=== PATIENT | male | born 1970 | race Caucasian/White ===

== ENCOUNTER 2023-06-26 22:03 | Emergency (ER) | payer MEDICAID, SELFPAY ==
[2023-06-26 22:09] VITALS: BP 130/103; BP 160/99; PULSE 103; PULSE 99; RESP 16; RESP 18; TEMP 36.8; O2SAT 95; O2SAT 99; BMI 26.2
[2023-06-26 22:11] VITALS: BP 131/94; PULSE 109; RESP 16; O2SAT 95
[2023-06-26 22:28] VITALS: BP 113/102; PULSE 101; RESP 16; O2SAT 95
[2023-06-26 22:31] VITALS: BP 127/87; PULSE 99; RESP 16; O2SAT 94
--- NOTE | 2023-06-26 22:39 | CRLHL7_ITS ---
For Patients: As a result of the Century Cures Act, medical imaging exams and procedure reports are released immediately into your electronic medical record. You may view this report before your referring provider. If you have questions, please contact your health care provider. INDICATION: Chest pain, diaphoresis. TECHNIQUE: Chest 2 views. COMPARISON: None. FINDINGS: Cardiovascular and mediastinum: Heart size and vasculature are normal in caliber and appearance. Lungs and pleural spaces: Lungs are clear. No sign of infiltrate or mass. No sign of pleural effusion. No pneumothorax. Bones and soft tissues: No significant findings. IMPRESSION: No acute cardiopulmonary abnormality. Dictated by Lico Lima MD @ 06/26/2023 11:09:47 PM (Electronically Signed)
--- NOTE | 2023-06-26 22:44 | ED_ITS ---
HPI - General Adult General Chief complaint: Chest Pain <Gwen Mota MD - Last Filed: 06/27/23 02:13> Stated complaint: Chest Pain <Gwen Mota MD - Last Filed: 06/27/23 02:13> Time Seen by Provider: 06/26/23 22:22 <Gwen Mota MD - Last Filed: 06/27/23 02:13> Source: patient, family and EMS <Gwen Mota MD - Last Filed: 06/27/23 02:13> Mode of arrival: EMS <Gwen Mota MD - Last Filed: 06/27/23 02:13> History of Present Illness HPI narrative: 53-year-old male with no prior cardiac history presents the emergency department by EMS. Reports that approximately 4 hours prior to arrival, he had an episode of lightheadedness with shortness of breath and racing heart that lasted about an hour while he was walking, playing golf with friends. He did have 3-4 alcoholic beverages today over the course of the afternoon. He assumed that he must just be a little dehydrated and it was a bit humid today. When he got home he drink 2 bottles of water but still felt an overall sense of heaviness in the chest and winded and he noticed that he had been sweating. He felt like his heart was racing. He does wear an Apple watch. He allows me to interrogate this. It does not have the AFib monitor [place] but it does have spot checks of heart rate. It looks as though his heart rate was recorded between 90 and 138 during his reported symptoms. He says that he is feeling better now. No prior history of similar episodes. He does have a history of hyperlipidemia, no prior stress testing. Does have a family history of coronary artery disease in his father and paternal grandmother both in their early 60s. Dad however was a very heavy smoker. Has no history of DVT or PE. He does have a history of rheumatoid arthritis but is managed on Humira. No known hypercoagulability. No fevers, no productive cough, no current GI symptoms though he is prone to heartburn. He states that he does tend to drink 3-4 alcoholic beverages per sitting, typically 3-4 days per week. Nonsmoker. Did not try any other interventions other than increased fluid to help with his symptoms. Did receive 325 of aspirin by EMS. Past medical history notable for rheumatoid arthritis and hyperlipidemia. Home meds are Humira and atorvastatin. Nonsmoker. Family history as above. ROS notable for the generalized, cardiac and respiratory symptoms as above, otherwise denies times 12 systems. <Gwen Mota MD - Last Filed: 06/27/23 02:13> Related Data Home medications: Home Medications Medication Instructions Recorded Confirmed adalimumab 40 mg/0.8 mL 40 mg subcut Q14D 06/26/23 06/26/23 subcutaneous syringe kit (Humira) atorvastatin 40 mg tablet (Lipitor) 40 mg PO DAILY 06/26/23 06/26/23 <Gwen Mota MD - Last Filed: 06/27/23 02:13> Allergies/adverse reactions: Allergies Allergy/AdvReac Type Severity Reaction Status Date / Time No Known Drug Allergies Allergy Verified 06/26/23 22:12 <Gwen Mota MD - Last Filed: 06/27/23 02:13> [facility] Medical History: Medical History (Updated 06/27/23 @ 02:13 by Gwen Mota MD) Rheumatoid arthritis ?M06.9 - Rheumatoid arthritis, unspecified (ICD-10) High cholesterol ?E78.00 - Pure hypercholesterolemia, unspecified (ICD-10) <Gwen Mota MD - Last Filed: 06/27/23 02:13> Surgical History: Surgical History (Updated 06/26/23 @ 22:52 by Sudarshan Pearson RN) No significant past surgical history <Gwen Mota MD - Last Filed: 06/27/23 02:13> Social History: Social History Smoking Status: Never smoker Second hand tobacco smoke exposure: No How often do you have a drink containing alcohol: never How often do you have six or more drinks on one occasion: Never AUDIT-C Alcohol total score: 0 Non-prescribed substance use: denies use <Gwen Mota MD - Last Filed: 06/27/23 02:13> Exam Const: Vital Signs, click to edit/add: Vital Signs - 24 hr 06/26/23 22:09 06/26/23 22:09 06/26/23 22:11 Temperature 98.2 F Pulse Rate 103 H 109 H Pulse Rate [Right Pulse Oximeter] 99 Respiratory Rate 18 16 16 Blood Pressure 130/103 H 131/94 H Blood Pressure [Le ft Upper Arm] 160/99 H Pulse Oximetry 99 95 95 Oxygen Delivery Me thod Room Air 06/26/23 22:28 06/26/23 22:31 06/26/23 22:50 Temperature Pulse Rate 101 H 99 Pulse Rate [Right Pulse Oximeter] Respiratory Rate 16 16 Blood Pressure 113/102 H 127/87 Blood Pressure [Le ft Upper Arm] Pulse Oximetry 95 94 98 Oxygen Delivery Me thod 06/27/23 03:13 Temperature 98.0 F Pulse Rate Pulse Rate [Right Pulse Oximeter] 89 Respiratory Rate 16 Blood Pressure Blood Pressure [Le ft Upper Arm] 125/77 Pulse Oximetry 98 Oxygen Delivery Me thod Room Air <Gwen Mota MD - Last Filed: 06/27/23 02:13> Vital Signs, click to edit/add: Vital Signs - 24 hr 06/26/23 22:09 06/26/23 22:09 06/26/23 22:11 Temperature 98.2 F Pulse Rate 103 H 109 H Pulse Rate [Right Pulse Oximeter] 99 Respiratory Rate 18 16 16 Blood Pressure 130/103 H 131/94 H Blood Pressure [Le ft Upper Arm] 160/99 H Pulse Oximetry 99 95 95 Oxygen Delivery Me thod Room Air 06/26/23 22:28 06/26/23 22:31 06/26/23 22:50 Temperature Pulse Rate 101 H 99 Pulse Rate [Right Pulse Oximeter] Respiratory Rate 16 16 Blood Pressure 113/102 H 127/87 Blood Pressure [Le ft Upper Arm] Pulse Oximetry 95 94 98 Oxygen Delivery Me thod 06/27/23 03:13 Temperature 98.0 F Pulse Rate Pulse Rate [Right Pulse Oximeter] 89 Respiratory Rate 16 Blood Pressure Blood Pressure [Le ft Upper Arm] 125/77 Pulse Oximetry 98 Oxygen Delivery Me thod Room Air <Nevin Louie MD - Last Filed: 06/27/23 03:24> Documenting provider has reviewed patient's vital signs: yes <Gwen Mota MD - Last Filed: 06/27/23 02:13> Common normals: no apparent distress and alert <MD Dorothy Duffy Last Filed: 06/27/23 02:13> General appearance: well kempt <MD Dorothy Duffy Last Filed: 06/27/23 02:13> HENMT: Common normals: normocephalic and head/scalp atraumatic <MD Dorothy Duffy Last Filed: 06/27/23 02:13> Head and scalp: normocephalic and atraumatic <MD Dorothy Duffy Last Filed: 06/27/23 02:13> Mouth: oral and palatal mucosa normal <MD Dorothy Duffy Last Filed: 06/27/23 02:13> Throat: posterior oropharynx normal <MD Dorothy Duffy Last Filed: 06/27/23 02:13> Eye: Common normals: conjunctivae normal <MD Dorothy Duffy Last Filed: 06/27/23 02:13> General eye: normal appearance of both eyes <MD Dorothy Duffy Last Filed: 06/27/23 02:13> Conjunctiva: conjunctiva(e) normal <MD Dorothy Duffy Last Filed: 02:13> Neck & C-Spine: Common normals: no lymphadenopathy <MD Dorothy Duffy Last Filed: 06/27/23 02:13> General: normal visual inspection <MD Dorothy Duffy Last Filed: 06/27/23 02:13> Resp: Common normals: normal respiratory effort, no use of accessory muscles and clear to auscultation bilaterally <MD Dorothy Duffy Last Filed: 06/27/23 02:13> Effort & inspection: able to speak in complete sentences <MD Dorothy Duffy Last Filed: 06/27/23 02:13> Auscultation: clear to auscultation bilaterally <MD Dorothy Duffy Last Filed: 06/27/23 02:13> Cardio: Common normals: regular rate, regular rhythm, S1 normal heart sound, S2 normal heart sound, no murmurs and peripheral pulses 2+ throughout <MD Dorothy Duffy Last Filed: 06/27/23 02:13> Rate: regular rate <MD Dorothy Duffy Last Filed: 06/27/23 02:13> Rhythm: regular rhythm <MD Dorothy Duffy Last Filed: 06/27/23 02:13> Heart sounds: S1 normal and S2 normal <MD Dorothy Duffy Last Filed: 06/27/23 02:13> Peripheral pulses: pulses 2+ throughout <MD Dorothy Duffy Last Filed: 06/27/23 02:13> GI: Common normals: Normal to inspection, nondistended, normoactive bowel sounds present, soft to palpation, non-tender, no hepatosplenomegaly and no masses <MD Dorothy Duffy Last Filed: 06/27/23 02:13> Palpation: soft and no hepatosplenomegaly <MD Dorothy Duffy Last Filed: 06/27/23 02:13> Extremity: Common normals: normal to inspection, normal capillary refill and no pedal edema <MD Dorothy Duffy Last Filed: 06/27/23 02:13> Neuro: Sensorium/orientation: alert <MD Dorothy Duffy Last Filed: 06/27/23 02:13> Speech: speech normal <MD Dorothy Duffy Last Filed: 06/27/23 02:13> Motor exam: strength 5/5 throughout and no tremor noted <MD Dorothy Duffy Last Filed: 06/27/23 02:13> Psych: Appearance: well kempt <MD Dorothy Duffy Last Filed: 06/27/23 02:13> Activity/motor behavior: appropriate eye contact <MD Dorothy Duffy Last Filed: 06/27/23 02:13> Mood and affect: euthymic mood <MD Dorothy Duffy Last Filed: 06/27/23 02:13> Memory/cognition: memory grossly intact <Gwen Mota MD - Last Filed: 06/27/23 02:13> Insight: insight good <Gwen Mota MD - Last Filed: 06/27/23 02:13> Judgement: judgment good <Gwen Mota MD - Last Filed: 06/27/23 02:13> Skin: Common normals: no rashes or lesions noted <Gwen Mota MD - Last Filed: 06/27/23 02:13> General skin exam: no rashes or lesions noted <Gwen Mota MD - Last Filed: 06/27/23 02:13> Course Course ED Course: Spell of chest pressure with diaphoresis and shortness of breath suspicious for cardiac arrhythmia, most likely AFib. Heart rate has now improved though EMS does report that it was elevated upon their arrival that did not catch any abnormal rhythms specifically. I recommend basic labs, troponin, BNP, chest x-ray, EKG, CBC. night monitor. At this time, he is back in normal sinus rhythm. Differential diagnosis also includes acute coronary syndrome, pulmonary embolism, congestive heart failure, cardiomyopathy, sepsis, anemia, electrolyte abnormality. <Gwen Mota MD - Last Filed: 06/27/23 02:13> Reevaluation(s) Time of Reevaluation #1: 23:52 <Gwen Mota MD - Last Filed: 06/27/23 02:13> Reevaluation #1: Patient continues to be in sinus rhythm, remains asymptomatic. Initial lab findings discussed, elevated troponin. D-dimer is also mildly elevated, because he does have a history of autoimmune disease, I do recommend that we do a CT PA while we wait for repeat troponin. Obviously if troponins are trending up, I am more concerned for acute coronary syndrome, if they are trending down, this would support the arrhythmia very. Will likely need cardiology input once the CT results are available. <Gwen Mota MD - Last Filed: 06/27/23 02:13> Time of Reevaluation #2: 01:14 <Gwen Mota MD - Last Filed: 06/27/23 02:13> Reevaluation #2: Patient remains asymptomatic. Updated on negative CT PA, troponins continue to elevate above initial level. I have started calling around for transfer. Awaiting call back from Cardiology and has been tentatively accepted for an [facility] cardiac tele bed. Patient does typically receive primary care through [facility]. I have been declined transfer from [facility]. <Gwen Mota MD - Last Filed: 06/27/23 02:13> Time of Reevaluation #3: 01:25 <Gwen Mota MD - Last Filed: 06/27/23 02:13> Reevaluation #3: Transfer accepted from [facility] by Dr. Barron, cardiology. Awaiting call back from hospitalist. Transfer center has assured me that they are holding a cardiology telemetry bed and there is no weight. Dr. Barron and I discussed patient care. He has already been given aspirin. He does recommend that we go ahead and start a heparin drip and this will be done. Transfer forms completed. Patient is in agreement. It sounds like we only have 1 ambulance on tonight, I would consider this an urgent transfer as his troponins are escalati ng. If patient is unable to transfer, would recommend repeat troponin with 4 hour typical heparin labs. <Gwen Mota MD - Last Filed: 06/27/23 02:13> Additional Reevaluation(s): Update: 1:51 a.m., [facility] hospitalist accepting, Dr. Draper. Awaiting timing of transfer plan due to EMS availability. <Gwen Mota MD - Last Filed: 06/27/23 02:13> Vital Signs Vital signs: Initial Vital Signs Temperature 98.2 F 06/26/23 22:09 Temperature Source Temporal Artery Scan 06/26/23 22:09 Pulse Rate 103 H 06/26/23 22:09 Pulse Rhythm Regular 06/26/23 22:09 Pulse Strength 3+ Normal 06/26/23 22:09 Respiratory Rate 18 06/26/23 22:09 Blood Pressure 130/103 H 06/26/23 22:09 Blood Pressure Mean 112 H 06/26/23 22:09 Blood Pressure Position Sitting 06/26/23 22:09 Pulse Oximetry 99 06/26/23 22:09 Oxygen Delivery Method Room Air 06/26/23 22:09 Vital Signs Temperature 98.2 F 06/26/23 22:09 Pulse Rate 103 H 06/26/23 22:09 Respiratory Rate 18 06/26/23 22:09 Blood Pressure 130/103 H 06/26/23 22:09 Pulse Oximetry 99 06/26/23 22:09 Oxygen Delivery Method Room Air 06/26/23 22:09 Temperature 98.0 F 06/27/23 03:13 Pulse Rate 89 06/27/23 03:13 Respiratory Rate 16 06/27/23 03:13 Blood Pressure 125/77 06/27/23 03:13 Pulse Oximetry 98 06/27/23 03:13 Oxygen Delivery Method Room Air 06/27/23 03:13 <Gwen Mota MD - Last Filed: 06/27/23 02:13> Initial Vital Signs Temperature 98.2 F 06/26/23 22:09 Temperature Source Temporal Artery Scan 06/26/23 22:09 Pulse Rate 103 H 06/26/23 22:09 Pulse Rhythm Regular 06/26/23 22:09 Pulse Strength 3+ Normal 06/26/23 22:09 Respiratory Rate 18 06/26/23 22:09 Blood Pressure 130/103 H 06/26/23 22:09 Blood Pressure Mean 112 H 06/26/23 22:09 Blood Pressure Position Sitting 06/26/23 22:09 Pulse Oximetry 99 06/26/23 22:09 Oxygen Delivery Method Room Air 06/26/23 22:09 Vital Signs Temperature 98.2 F 06/26/23 22:09 Pulse Rate 103 H 06/26/23 22:09 Respiratory Rate 18 06/26/23 22:09 Blood Pressure 130/103 H 06/26/23 22:09 Pulse Oximetry 99 06/26/23 22:09 Oxygen Delivery Method Room Air 06/26/23 22:09 Temperature 98.0 F 06/27/23 03:13 Pulse Rate 89 06/27/23 03:13 Respiratory Rate 16 06/27/23 03:13 Blood Pressure 125/77 06/27/23 03:13 Pulse Oximetry 98 06/27/23 03:13 Oxygen Delivery Method Room Air 06/27/23 03:13 <Nevin Louie MD - Last Filed: 06/27/23 03:24> Medical Decision Making MDM Narrative Medical decision making narrative: Patient was transferred to my care by Dr. Mota. Patient noted to have a non STEMI. Unfortunately troponins are trending upward and although patient does not describe chest pain he does not feel well an IM noting that this is his anginal equivalent. Blood pressure pulse stable at this time. Given patient's troponins which are trending upward I am requesting transfer on an expedited basis from EMS. <Nevin Louie MD - Last Filed: 06/27/23 03:24> Lab Data Lab results reviewed: Yes I reviewed the patient's lab results <Gwen Mota MD - Last Filed: 06/27/23 02:13> Lab results narrative: Elevated troponin, mildly elevated D-dimer. Update: 2nd troponin continues to escalate. Transfer planned <Gwen Mota MD - Last Filed: 06/27/23 02:13> Labs: Lab Results 06/26/23 06/26/23 06/27/23 Range/Units 22:46 22:50 00:24 WBC 13.47 H (4.50-11.00) K/uL RBC 4.48 (4.30-5.90) m/uL Hgb 14.1 (13.5-17.5) gm/dL Hct 41.0 (37.0-53.0) % MCV 92 (80-100) fL MCH 32 (26-34) pg MCHC 34 (32-36) gm/dL RDW Coeff of Katia 11.9 (11.5-15.5) % Plt Count 304 (140-440) K/uL Neut % (Auto) 70.3 (42.0-72.0) % Lymph % (Auto) 17.9 L (20-44) % [place] % (Auto) 8.5 (0.0-11.0) % Eos % (Auto) 1.6 (0.0-7.0) % Baso % (Auto) 0.7 (0.0-3.0) % Neut # (Auto) 9.50 H (1.7-7.0) K/uL Lymph # (Auto) 2.40 (0.90-2.90) K/uL [place] # (Auto) 1.10 H (0.00-0.90) K/UL Eos # (Auto) 0.20 (0.00-0.50) K/uL Baso # (Auto) 0.10 (0.00-0.30) K/uL Abs Immat Gran (auto) 0.10 (0.00-0.30) K/uL Imm/Tot Granulo (auto) 1.0 % INR 1.03 (0.91-1.10) APTT 34 H (23-33) Seconds D-Dimer Quant (PE/DVT) 0.62 H (0.00-0.50) ug/ml Sodium 139 (135-149) mmol/L Potassium 3.7 (3.6-5.1) mmol/L Chloride 108 (96-114) mmol/L Carbon Dioxide 20 (20-32) mmol/L Anion Gap 11 (7-15) mEq/L BUN 16 (7-30) mg/dL Creatinine 0.9 (0.5-1.5) mg/dL Estimated Creat Clear 110.84 Estimated GFR 101 ml/min Glucose 126 H (60-115) mg/dL Calcium 9.2 (8.4-10.6) mg/dL Troponin I 0.09 H* (0.01-0.04) ng/mL C-Reactive Protein < 0.5 L (0.5-1.0) mg/dL NT-Pro-B Natriuret Pep 115 pg/mL POC Troponin I 0.09 H 0.19 H (0.01-0.04) ng/ml <Gwen Mota MD - Last Filed: 06/27/23 02:13> Lab Results 06/26/23 06/26/23 06/27/23 Range/Units 22:46 22:50 00:24 WBC 13.47 H (4.50-11.00) K/uL RBC 4.48 (4.30-5.90) m/uL Hgb 14.1 (13.5-17.5) gm/dL Hct 41.0 (37.0-53.0) % MCV 92 (80-100) fL MCH 32 (26-34) pg MCHC 34 (32-36) gm/dL RDW Coeff of [place] 11.9 (11.5-15.5) % Plt Count 304 (140-440) K/uL Neut % (Auto) 70.3 (42.0-72.0) % Lymph % (Auto) 17.9 L (20-44) % [place] % (Auto) 8.5 (0.0-11.0) % Eos % (Auto) 1.6 (0.0-7.0) % Baso % (Auto) 0.7 (0.0-3.0) % Neut # (Auto) 9.50 H (1.7-7.0) K/uL Lymph # (Auto) 2.40 (0.90-2.90) K/uL [place] # (Auto) 1.10 H (0.00-0.90) K/UL Eos # (Auto) 0.20 (0.00-0.50) K/uL Baso # (Auto) 0.10 (0.00-0.30) K/uL Abs Immat Gran (auto) 0.10 (0.00-0.30) K/uL Imm/Tot Granulo (auto) 1.0 % INR 1.03 (0.91-1.10) APTT 34 H (23-33) Seconds D-Dimer Quant (PE/DVT) 0.62 H (0.00-0.50) ug/ml Sodium 139 (135-149) mmol/L Potassium 3.7 (3.6-5.1) mmol/L Chloride 108 (96-114) mmol/L Carbon Dioxide 20 (20-32) mmol/L Anion Gap 11 (7-15) mEq/L BUN 16 (7-30) mg/dL Creatinine 0.9 (0.5-1.5) mg/dL Estimated Creat Clear 110.84 Estimated GFR 101 ml/min Glucose 126 H (60-115) mg/dL Calcium 9.2 (8.4-10.6) mg/dL Troponin I 0.09 H* (0.01-0.04) ng/mL C-Reactive Protein < 0.5 L (0.5-1.0) mg/dL NT-Pro-B Natriuret Pep 115 pg/mL POC Troponin I 0.09 H 0.19 H (0.01-0.04) ng/ml <Nevin Louie MD - Last Filed: 06/27/23 03:24> Imaging Data Chest x-ray: Attestation: I have reviewed the pertinent imaging results. <Gwen Mota MD - Last Filed: 06/27/23 02:13> My impression: Normal x-ray. No effusions, consolidations or cardiomegaly. <Gwen Mota MD - Last Filed: 06/27/23 02:13> Radiologist's impression: IMPRESSION: No acute cardiopulmonary abnormality. <Gwen Mota MD - Last Filed: 06/27/23 02:13> CT scan - chest: Attestation: I have reviewed the pertinent imaging results. <Gwen Mota MD - Last Filed: 06/27/23 02:13> My impression: No obvious large vessel clot <Gwen Mota MD - Last Filed: 06/27/23 02:13> Radiologist's impression: IMPRESSION: No pulmonary embolism to the level of the distal segmental pulmonary arteries. Limited evaluation of the subsegmental branches. No focal consolidations. Few mildly enlarged mediastinal and bilateral hilar lymph nodes, possibly reactive. <Gwen Mota MD - Last Filed: 06/27/23 02:13> ECG Data Attestation: I personally reviewed and interpreted this ECG as follows: <Gwen Mota MD - Last Filed: 06/27/23 02:13> Prior ECG tracings: not available for review <Gwen Mota MD - Last Filed: 06/27/23 02:13> Interpretation: Normal sinus rhythm, rate 99. Mild left axis deviation with otherwise no significant ST or T-wave abnormalities, no obvious acute ischemia. <Gwen Mota MD - Last Filed: 06/27/23 02:13> Discharge Plan Discharge Clinical Impression: Non-ST elevated myocardial infarction (non-STEMI) <Gwen Mota MD - Last Filed: 06/27/23 02:13> Patient Disposition: [facility] <Gwen Mota MD - Last Filed: 06/27/23 02:13> Discharge Location: [facility] <Gwen Mota MD - Last Filed: 06/27/23 02:13> Prescriptions: No Action atorvastatin [Lipitor] 40 mg tablet 40 mg PO DAILY Humira 40 mg/0.8 mL syringe kit 40 mg subcut Q14D <Gwen Mota MD - Last Filed: 06/27/23 02:13> Stand Alone Forms: [facility] Info Instructions <Gwen Mota MD - Last Filed: 06/27/23 02:13>
[2023-06-26 22:50] VITALS: O2SAT 98
[2023-06-26 22:54] LABS: Basophils Percent Auto 0.7 % (0.0-3.0); Eosinophils Percent Auto 1.6 % (0.0-7.0); Hemoglobin* 14.1 gm/dL (13.5-17.5); Lymphocytes Percent Auto 17.9 % (20-44); Mean Corpuscular HGB Conc 34 gm/dL (32-36); Mean Corpuscular Hemoglobin 32 pg (26-34); Mean Corpuscular Volume 92 fL (80-100); Monocytes Percent Auto 8.5 % (0.0-11.0); Neutrophils Percent Auto 70.3 % (42.0-72.0); Platelet Count* 304 K/uL (140-440); RDW Coefficient of Variation % 11.9 % (11.5-15.5); Red Blood Count 4.48 m/uL (4.30-5.90); White Blood Count* 13.47 K/uL (4.50-11.00)
[2023-06-26 23:01] LABS: Slide Review Reflex No
[2023-06-26 23:02] LABS: Troponin, Point-of-Care* 0.09 ng/ml (0.01-0.04)
[2023-06-26 23:16] LABS: Chloride* 108 mmol/L (96-114); Sodium* 139 mmol/L (135-149)
[2023-06-26 23:17] LABS: Potassium* 3.7 mmol/L (3.6-5.1)
[2023-06-26 23:19] LABS: Creatinine* 0.9 mg/dL (0.5-1.5); Est. Creatinine Clearance* 110.84; Estimated Glomerular Filt Rate 101 ml/min
[2023-06-26 23:20] LABS: Anion Gap 11 mEq/L (7-15); Blood Urea Nitrogen* 16 mg/dL (7-30); Calcium* 9.2 mg/dL (8.4-10.6); Carbon Dioxide* 20 mmol/L (20-32); Glucose* 126 mg/dL (60-115)
[2023-06-26 23:30] LABS: C Reactive Protein* < 0.5 mg/dL (0.5-1.0); NT Pro B Type NatriureticPept* 115 pg/mL
[2023-06-26 23:31] LABS: D Dimer Quantitative* 0.62 ug/ml (0.00-0.50)
[2023-06-26 23:34] LABS: Troponin I* 0.09 ng/mL (0.01-0.04)
--- NOTE | 2023-06-26 23:40 | CRLHL7_ITS ---
For Patients: As a result of the Century Cures Act, medical imaging exams and procedure reports are released immediately into your electronic medical record. You may view this report before your referring provider. If you have questions, please contact your health care provider. INDICATION: Dyspnea, tachycardia. TECHNIQUE: CT chest PE was acquired with 100 cc Omnipaque 350 IV contrast. COMPARISON: None. FINDINGS: Heart and vasculature: Contrast opacification of the pulmonary arterial tree is adequate. No sign of pulmonary embolism. Heart size is normal. Thoracic aorta and pulmonary artery are normal in caliber. Lungs and pleura: Scattered atelectasis. No pleural effusions, pleural thickening, or pneumothorax. Lymph nodes/mediastinum: Few mildly enlarged mediastinal and bilateral hilar lymph nodes, possibly reactive. Chest wall: No masses. Upper abdomen: No acute or significant findings. Bones: Unremarkable for age. IMPRESSION: No pulmonary embolism to the level of the distal segmental pulmonary arteries. Limited evaluation of the subsegmental branches. No focal consolidations. Few mildly enlarged mediastinal and bilateral hilar lymph nodes, possibly reactive. Please note that all CT scans at this facility use dose modulation, iterative reconstruction, and/or weight-based dosing when appropriate to reduce radiation dose to as low as reasonably achievable. Dictated by Deyvi Mejia MD @ 06/27/2023 12:31:18 AM (Electronically Signed)
[2023-06-27] MEDS: HEPARIN 5,000 UNIT/0.5 ML INJ 4000 UNIT IVP (01:41)
[2023-06-27 01:42] LABS: INR 1.03 (0.91-1.10); Prothrombin Time 14.1 Seconds
[2023-06-27] MEDS: HEPARIN 25,000 UNIT/500 ML BAG 23 UNIT IV (01:42)
[2023-06-27 01:46] LABS: Partial Thromboplastin Time* 34 Seconds (23-33)
[2023-06-27 03:13] VITALS: BP 125/77; PULSE 89; RESP 16; TEMP 36.7; O2SAT 98
[2023-06-27 03:22] LABS: Troponin, Point-of-Care* 0.13 ng/ml (0.01-0.04)
[2023-06-27 03:36] LABS: Troponin, Point-of-Care* 0.13 ng/ml (0.01-0.04)
[2023-06-27 03:41] VITALS: BP 125/77; PULSE 89; RESP 16; TEMP 36.7
[2023-06-27 04:01] LABS: Partial Thromboplastin Time* 171 Seconds (23-33)
== END 2023-06-27 03:41 | disposition short-term general hospital (02) ==
PROVIDERS: Emergency Provider Family Medicine
DX: I21.4 Non-ST elevation (NSTEMI) myocardial infarction (principal)
CPT/HCPCS: 36415; 71046; 71275; 80048; 83880; 84484; 85025; 85379; 85610; 85730; 86140; 93005; 94761; 99285; J1644; Q9967

== ENCOUNTER 2023-06-27 03:15 | Outpatient (CLI) | payer MEDICAID, SELFPAY | END 2023-06-27 03:16 | disposition home or self-care (01) | LOC: AMB 07-03 23:24 | PROVIDERS: Visit Provider Family Medicine | DX: R07.89 Other chest pain (principal) | CPT/HCPCS: A0425; A0434 ==